=== PATIENT | female | born 1930 | race Asian ===

== ENCOUNTER 2016-10-22 11:48 | Inpatient (IN) | payer MEDICARE, MEDICAID ==
[2016-10-22] VITALS (13 sets, daily range): BP systolic 114–148; BP diastolic 54–104
[~2016-10-22] VITALS: Ht 157.5 cm; Wt 61.2 kg
[~2016-10-22 11:48] MED LIST: UNOBMED
[2016-10-22] MEDS ORDERED: Morphine Sulfate 4mg/ml Inj IVP ONE (12:30)
[2016-10-22 12:57] LABS: EOSINOPHILS % (AUTO) 0.8 % (0.0-3.0); LYMPHOCYTES % (AUTO) 23.6 % (20.0-45.0); MEAN CORPUSCULAR HEMOGLOBIN 29.9 PG (27.0-31.0); MEAN CORPUSCULAR HGB CONC 33.3 G/DL (32.0-36.0); MEAN CORPUSCULAR VOLUME 90 FL (80-99); MEAN PLATELET VOLUME 5.6 FL (6.5-10.1); MONOCYTES % (AUTO) 5.7 % (1.0-10.0); NEUTROPHILS % (AUTO) 68.9 % (45.0-75.0); PLATELET COUNT 171 K/UL (150-450); RED BLOOD COUNT 3.58 M/UL (4.20-5.40); WHITE BLOOD COUNT 7.3 K/UL (4.8-10.8)
[2016-10-22 13:09] LABS: INR 0.9 (0.9-1.1); PROTHROMBIN TIME 9.4 SEC (9.30-11.50)
[2016-10-22 13:18] LABS: ALANINE AMINOTRANSFERASE 17 U/L (3-33); ALBUMIN/GLOBULIN RATIO 1.4 (1.0-2.7); ANION GAP 17 (5-15); ASPARTATE AMINO TRANSFERASE 27 U/L (5-40); CALCIUM 8.6 mg/dL (8.6-10.2); CARBON DIOXIDE 23 mEQ/L (20-30); CHLORIDE 98 mEQ/L (98-107); HEMOLYSIS 16; POTASSIUM 3.9 mEQ/L (3.4-4.9); SODIUM 138 mEQ/L (135-145); TOTAL PROTEIN 6.6 g/dL (6.6-8.7)
--- NOTE | 2016-10-22 15:35 | History & Physical ---
History and Physical History & Physicial HPI 86 year old patient brought in by EMS. She tripped and fell over a step and has an acute fracture. patient with acute fall onto her left side. She has left hip pain and fracture. She is unable to move the hip. She denies head injury. She has no other complaints. she has no significant cardiopulmonary issues at this time. no chest pain or palpitations. Allergies: none known Past Medical History: HTN Social History: Denies: alcohol use, drug use, smoking; retired Reviewed of systems: all 10 points reviewed and are negative physical exam WDWN NAD clear breath sounds bilaterally without rhonchi or wheeze [id number] without MRG NABS nontender no HSM no CCE severe pain with ROM of left hip nonfocal Laboratory Tests Test 10/22/16 12:30 White Blood Count 7.3 K/UL (4.8-10.8) Red Blood Count 3.58 M/UL (4.20-5.40) L Hemoglobin 10.7 G/DL (12.0-16.0) L Hematocrit 32.2 % (37.0-47.0) L Mean Corpuscular Volume 90 FL (80-99) Mean Corpuscular Hemoglobin 29.9 PG (27.0-31.0) Mean Corpuscular Hemoglobin Concent 33.3 G/DL (32.0-36.0) Red Cell Distribution Width 12.0 % (11.6-14.8) Platelet Count 171 K/UL (150-450) Mean Platelet Volume 5.6 FL (6.5-10.1) L Neutrophils (%) (Auto) 68.9 % (45.0-75.0) Lymphocytes (%) (Auto) 23.6 % (20.0-45.0) Monocytes (%) (Auto) 5.7 % (1.0-10.0) Eosinophils (%) (Auto) 0.8 % (0.0-3.0) Basophils (%) (Auto) 1.0 % (0.0-2.0) Prothrombin Time 9.4 SEC (9.30-11.50) Prothromb Time International Ratio 0.9 (0.9-1.1) Activated Partial Thromboplast Time 24 SEC (23-33) Sodium Level 138 mEQ/L (135-145) Potassium Level 3.9 mEQ/L (3.4-4.9) Chloride Level 98 mEQ/L (98-107) Carbon Dioxide Level 23 mEQ/L (20-30) Anion Gap 17 (5-15) H Blood Urea Nitrogen 17 mg/dL (7-23) Creatinine 1.0 mg/dL (0.5-0.9) H Estimat Glomerular Filtration Rate mL/min (>60) Glucose Level 118 mg/dL (74-106) H Calcium Level 8.6 mg/dL (8.6-10.2) Total Bilirubin 0.3 mg/dL (0.0-1.2) Aspartate Amino Transf (AST/SGOT) 27 U/L (5-40) Alanine Aminotransferase (ALT/SGPT) 17 U/L (3-33) Alkaline Phosphatase 52 U/L (35-104) Total Protein 6.6 g/dL (6.6-8.7) Albumin 3.9 g/dL (3.5-5.2) Globulin 2.7 g/dL Albumin/Globulin Ratio 1.4 (1.0-2.7) IMPRESSION left Hip fracture advance age hypertension PLAN IV hydration stat echocardiogram labs reviewed ortho evaluation postoperative care and rehab ABDIFATAH NEWBY Oct 22, 2016 15:35
--- NOTE | 2016-10-22 16:04 | Emergency Room Report ---
History of Present Illness General Chief Complaint: Multiple Trauma/Fall Source: Patient, Family Member, EMS Present Illness HPI This patient is brought in by EMS. She tripped and fell over a step that she didn't see. This occurred 2 hours prior to arrival. She fell onto her left side. She has left hip pain. She is unable to move the hip. She did not have any other injuries. She denies head injury. She has no other complaints. Allergies: Coded Allergies: UNABLE TO ASSESS (Unverified , 10/22/16) Patient History Past Medical History: see triage record, HTN Social History: Denies: alcohol use, drug use, smoking Reviewed Nursing Documentation: PMH: Agreed, PSxH: Agreed Nursing Documentation-PMH Past Medical History: Deferred Review of Systems All Other Systems: negative except mentioned in HPI Physical Exam Vital Signs Date Time Temp Pulse Resp B/P Pulse Ox O2 Delivery O2 Flow Rate FiO2 10/22/16 11:24 97.7 76 20 181/89 98 Room Air Sp02 EP Interpretation: reviewed, normal General Appearance: no apparent distress, alert, GCS 15, non-toxic Head: normocephalic, atraumatic Eyes: bilateral eye PERRL, bilateral eye normal inspection ENT: hearing grossly normal, normal pharynx, no angioedema, normal voice Neck: full range of motion, supple/symm/no masses Respiratory: chest non-tender, lungs clear, normal breath sounds, no respiratory distress, no retraction, no accessory muscle use, speaking full sentences Cardiovascular #1: regular rate, rhythm, no edema Gastrointestinal: normal bowel sounds, non tender, soft, non-distended, no guarding, no rebound Rectal: deferred Musculoskeletal: other - Severe pain with ROM of L. hip Neurologic: alert, oriented x3, responsive, motor strength/tone normal, sensory intact, speech normal Psychiatric: judgement/insight normal, memory normal, mood/affect normal, no suicidal/homicidal ideation Skin: normal color, no rash, warm/dry, well hydrated Medical Decision Making Diagnostic Impression: Primary Impression: Hip fracture, left Additional Impressions: Fall Fracture of multiple pubic rami ER Course This patient suffered a mechanical fall and has a left hip fracture. She is admitted to the operating room for surgical repair. Labs Test 10/22/16 12:30 White Blood Count 7.3 K/UL (4.8-10.8) Red Blood Count 3.58 M/UL (4.20-5.40) Hemoglobin 10.7 G/DL (12.0-16.0) Hematocrit 32.2 % (37.0-47.0) Mean Corpuscular Volume 90 FL (80-99) Mean Corpuscular Hemoglobin 29.9 PG (27.0-31.0) Mean Corpuscular Hemoglobin Concent 33.3 G/DL (32.0-36.0) Red Cell Distribution Width 12.0 % (11.6-14.8) Platelet Count 171 K/UL (150-450) Mean Platelet Volume 5.6 FL (6.5-10.1) Neutrophils (%) (Auto) 68.9 % (45.0-75.0) Lymphocytes (%) (Auto) 23.6 % (20.0-45.0) Monocytes (%) (Auto) 5.7 % (1.0-10.0) Eosinophils (%) (Auto) 0.8 % (0.0-3.0) Basophils (%) (Auto) 1.0 % (0.0-2.0) Prothrombin Time 9.4 SEC (9.30-11.50) Prothromb Time International Ratio 0.9 (0.9-1.1) Activated Partial Thromboplast Time 24 SEC (23-33) Sodium Level 138 mEQ/L (135-145) Potassium Level 3.9 mEQ/L (3.4-4.9) Chloride Level 98 mEQ/L (98-107) Carbon Dioxide Level 23 mEQ/L (20-30) Anion Gap 17 (5-15) Blood Urea Nitrogen 17 mg/dL (7-23) Creatinine 1.0 mg/dL (0.5-0.9) Estimat Glomerular Filtration Rate mL/min (>60) Glucose Level 118 mg/dL (74-106) Calcium Level 8.6 mg/dL (8.6-10.2) Total Bilirubin 0.3 mg/dL (0.0-1.2) Aspartate Amino Transf (AST/SGOT) 27 U/L (5-40) Alanine Aminotransferase (ALT/SGPT) 17 U/L (3-33) Alkaline Phosphatase 52 U/L (35-104) Total Protein 6.6 g/dL (6.6-8.7) Albumin 3.9 g/dL (3.5-5.2) Globulin 2.7 g/dL Albumin/Globulin Ratio 1.4 (1.0-2.7) Other X-Ray Diagnostic Results X-Ray ordered: L. Hip. # of Views/Limited Vs Complete: Complete Interpretation: other Indication: Pain Impression: Other - Comminuted intertrochanteric L. hip fx. Nondisplaced superior and inferior pubic rami fracture. Date Electronically Signed: Oct 22, 2016 Time Electronically Signed: 16:28 Interpreting ER Physician: Barrie Last Vital Signs Date Time Temp Pulse Resp B/P Pulse Ox O2 Delivery O2 Flow Rate FiO2 10/22/16 15:48 76 17 132/60 98 Room Air 10/22/16 15:28 97.1 Disposition: ADMITTED INPATIENT Condition: Serious Referrals: NOT CHOSEN JOSEFA/,REFERRING (PCP) BLADE RECINOS D.O. Oct 22, 2016 16:04
[2016-10-22] MEDS ORDERED: Bupivacaine w/Epi 0.25% 30ml Vial INJ ONE (16:36)
--- NOTE | 2016-10-22 16:44 | Anethesia Preoperative Eval ---
Anesthesia Pre-op PMH/ROS General Date of Evaluation: Oct 22, 2016 Anesthesiologist: Simeon ASA Score: ASA 2 Mallampati Score Class I : Soft palate, uvula, fauces, pillars visible Class II: Soft palate, uvula, fauces visible Class III: Soft palate, base of uvula visible Class IV: Only hard plate visible Mallampati Classification: Class II Surgeon: Timoteo Diagnosis: Left hip fracture Surgical Procedure: Left hip ORIF Anesthesia History: none Family History: no anesthesia problems Allergies: Coded Allergies: UNABLE TO ASSESS (Unverified , 10/22/16) Medications: see eMAR Past Medical History Cardiovascular: Reports: HTN, Denies: CAD, AR, arrhythmia, other, valve dz Pulmonary: Denies: COPD, BERNARDO, asthma, other Gastrointestinal/Genitourinary: Denies: CRI, ESRD, GERD, other Neurologic/Psychiatric: Denies: CVA, TIA, dementia, depression/anxiety, other Endocrine: Denies: DM, hypothyroidism, other, steroids HEENT: Denies: [place] (L), [place] (R), cataract (L), cataract (R), glaucoma, other Hematology/Immune: Denies: DVT, anemia, bleeding disorder, other Musculoskeletal/Integumentary: Denies: DDD, DJD, OA, RA, edema, other PSxH Narrative: C/s Anesthesia Pre-op Phys. Exam Physician Exam Last Vital Signs Date Time Temp Pulse Resp B/P Pulse Ox O2 Delivery O2 Flow Rate FiO2 10/22/16 15:48 76 17 132/60 98 Room Air 10/22/16 15:28 97.1 Constitutional: NAD Cardiovascular: RRR Airway Exam Mallampati Score: Class II MO: full ROM: full Teeth: missing Anesthesia Pre-op A/P Labs Hematology Test 10/22/16 12:30 White Blood Count 7.3 K/UL (4.8-10.8) Red Blood Count 3.58 M/UL (4.20-5.40) L Hemoglobin 10.7 G/DL (12.0-16.0) L Hematocrit 32.2 % (37.0-47.0) L Mean Corpuscular Volume 90 FL (80-99) Mean Corpuscular Hemoglobin 29.9 PG (27.0-31.0) Mean Corpuscular Hemoglobin Concent 33.3 G/DL (32.0-36.0) Red Cell Distribution Width 12.0 % (11.6-14.8) Platelet Count 171 K/UL (150-450) Mean Platelet Volume 5.6 FL (6.5-10.1) L Neutrophils (%) (Auto) 68.9 % (45.0-75.0) Lymphocytes (%) (Auto) 23.6 % (20.0-45.0) Monocytes (%) (Auto) 5.7 % (1.0-10.0) Eosinophils (%) (Auto) 0.8 % (0.0-3.0) Basophils (%) (Auto) 1.0 % (0.0-2.0) Coagulation Test 10/22/16 12:30 Prothrombin Time 9.4 SEC (9.30-11.50) Prothromb Time International Ratio 0.9 (0.9-1.1) Activated Partial Thromboplast Time 24 SEC (23-33) Chemistry Test 10/22/16 12:30 Sodium Level 138 mEQ/L (135-145) Potassium Level 3.9 mEQ/L (3.4-4.9) Chloride Level 98 mEQ/L (98-107) Carbon Dioxide Level 23 mEQ/L (20-30) Anion Gap 17 (5-15) H Blood Urea Nitrogen 17 mg/dL (7-23) Creatinine 1.0 mg/dL (0.5-0.9) H Estimat Glomerular Filtration Rate mL/min (>60) Glucose Level 118 mg/dL (74-106) H Calcium Level 8.6 mg/dL (8.6-10.2) Total Bilirubin 0.3 mg/dL (0.0-1.2) Aspartate Amino Transf (AST/SGOT) 27 U/L (5-40) Alanine Aminotransferase (ALT/SGPT) 17 U/L (3-33) Alkaline Phosphatase 52 U/L (35-104) Total Protein 6.6 g/dL (6.6-8.7) Albumin 3.9 g/dL (3.5-5.2) Globulin 2.7 g/dL Albumin/Globulin Ratio 1.4 (1.0-2.7) Risk Assessment & Plan Assessment: ASA II Plan: GA Status Change Before Surgery: No Pre-Antibiotics Drug: Ancef 2g Given Within 1 Hr of Incision: Yes Time Given: 17:10 ANALI MARTINI M.D. Oct 22, 2016 16:44
[2016-10-22] MEDS ORDERED: fentaNYL 250mcg/5ml ONE (17:00)
[2016-10-22] MEDS ORDERED: Ketamine 500mg Inj ONE (17:00)
[2016-10-22] MEDS ORDERED: Propofol 10mg/ml 20ml IV ONE (17:00)
[2016-10-22] MEDS ORDERED: Lidocaine 1% MPF 10mg/ml 5ml ONE (17:00)
--- NOTE | 2016-10-22 17:02 | Pre-Procedure Note/Attestation ---
Pre-Procedure Note/Attestation Complete Prior to Procedure Planned Procedure: left Procedure Narrative: hip orif Indications for Procedure Pre-Operative Diagnosis: left hip fracture Attestation I attest that I discussed the nature of the procedure; its benefits; risks and complications; and alternatives (and the risks and benefits of such alternatives ), prior to the procedure, with the patient (or the patient's legal inside sales representative). I attest that, if there was a reasonable possibility of needing a blood transfusion, the patient (or the patient's legal inside sales representative) was given the [facility] standardized written summary, pursuant to the [place] Blood Safety Act ([place] Health and Safety Code # 1645, as amended). I attest that I re-evaluated the patient just prior to the surgery and that there has been no change in the patient's H&P, except as documented below: BHAVNA HERRERA Oct 22, 2016 17:02
--- NOTE | 2016-10-22 17:02 | Operative Note - PDOC ---
Operative Note Operative Note Pre-op Diagnosis: left hip fracture Procedure: left hip orif Post-op Diagnosis: same as pre-op Operative Findings: consistent w/pre-op dx studies Specimen: none Complications: none Condition: stable Estimated Blood Loss: none Drains: none Implant(s) used?: Yes BHAVNA HERRERA Oct 22, 2016 17:02
[2016-10-22] MEDS ORDERED: Morphine Sulfate 2mg/ml Inj IVP PRN (17:15)
[2016-10-22] MEDS ORDERED: Milk of Magnesia 30ml Ud ORAL PRN (17:15)
[2016-10-22] MEDS ORDERED: Norco 5mg/325mg tab ORAL PRN (17:15)
--- NOTE | 2016-10-22 17:46 | 48 Hour Post Anesthesia Eval ---
Post Anesthesia Evaluation Procedure: ORIF L Hip Date of Evaluation: Oct 22, 2016 Time of Evaluation: 20:11 Blood Pressure Systolic: 146 0: 73 Pulse Rate: 79 Respiratory Rate: 17 Temperature (Fahrenheit): 97.3 O2 Sat by Pulse Oximetry: 98 Airway: patent Nausea: No Vomiting: No Pain Intensity: 2 Hydration Status: adequate Cardiopulmonary Status: Stable Mental Status/LOC: patient returned to baseline Follow-up Care/Observations: 0 Post-Anesthesia Complications: 0 Follow-up care needed: N/A Jacques Gill MD Oct 22, 2016 17:46
--- NOTE | 2016-10-22 18:12 | Immediate Post-Op Evaluation ---
Immediate Post-Op Evalulation Immediate Post-Op Evalulation Procedure: ORIF L Hip Date of Evaluation: Oct 22, 2016 Time of Evaluation: 18:12 IV Fluids: 500 Blood Products: 0 Estimated Blood Loss: 150 Urinary Output: 100 Blood Pressure Systolic: 123 Blood Pressure Diastolic: 63 Pulse Rate: 84 Respiratory Rate: 16 O2 Sat by Pulse Oximetry: 97 Temperature (Fahrenheit): 97.1 Pain Score (1-10): 0 Nausea: No Vomiting: No Complications 0 Patient Status: awake, reacts, patent, none Hydration Status: adequate Drug: Ancef 2g Given Within 1 Hr of Incision: Yes Time Given: 17:10 ANALI MARTINI M.D. Oct 22, 2016 18:12
[2016-10-22] MEDS ORDERED: Bacitracin 50000 Units Vial ONE (18:41)
[2016-10-22] MEDS: Docusate 100mg cap ORAL SCH (21:00)
[2016-10-22] MEDS: Metamucil Pkt ORAL SCH (21:00)
--- NOTE | 2016-10-22 21:30 | Operative Note - Dictated ---
DATE OF OPERATION: 10/22/2016 PREOPERATIVE DIAGNOSIS: Left intertrochanteric subtrochanteric hip fracture. POSTOPERATIVE DIAGNOSIS: Left intertrochanteric subtrochanteric hip fracture. PROCEDURE PERFORMED: Open reduction and internal fixation left intertrochanteric subtrochanteric fracture with intramedullary device. SURGEON: Ivan Mahmood M.D. ANESTHESIA: General. INDICATION FOR PROCEDURE: The patient is a pleasant 86-year-old female who sustained a mechanical fall. She was diagnosed with a displaced intertrochanteric/subtrochanteric fracture. She was indicated operative fixation. Risks, limitations, expectations, and complications of the procedure were discussed in detail including continued pain, need for future surgery, risk of anesthesia, medical complications, DVT, PE, and mortality risks. All questions addressed. Prior to surgery, I attempted calling Jesus Moeller, who is listed as emergency contact, who is her daughter. Unfortunately, her number was not accurate. DESCRIPTION OF PROCEDURE: An informed consent was obtained. The patient was taken to the operative room and placed under general anesthesia. The patient was carefully placed in the beach-chair position. Left hip was prepped and draped in a sterile manner. Time-out was performed. A 2 g of Ancef was administered. The lateral skin incision was then made. Guidewire was put in the proximal aspect of the femur and proximal aspect of the femur was opened up with opening reamer. A long beaded tip guidewire was then placed in the shaft and 12 mm reamer was then sent along with the 15.5 for the proximal aspect, a 380 x 11 mm gamma nail was selected and placed through the second stab incision. A guidewire placed in the neck and head junction. A 95 mm screw was selected and placed. Once that was done, targeting device for the distal screws were then placed and two distal screws were then placed. Once that was done, the targeting device was removed. Portal sites were closed using #1 Vicryl suture, 2-0 Vicryl suture, and 3-0 Monocryl suture. Steri-Strips and a sterile dressing were applied. The patient was awoken and taken to the recovery room with stable vital signs. ESTIMATED BLOOD LOSS: 50 mL. COMPLICATIONS: None. SPECIMENS: None. IMPLANT: [place] long gamma nail, primary cannulated screw, and two distal locking screws. Ivan Mahmood M.D. DR: Susy JOB#: [id number] CC:
[2016-10-22] MEDS: D5 1/2NS w/KCl 20mEq 1,000 ML IV SCH (21:53)
[2016-10-22] MEDS: Morphine Sulfate 2mg/ml Inj IVP PRN (22:07)
[2016-10-23 00:47] VITALS: BP 108/54
--- NOTE | 2016-10-23 02:15 | Consultation ---
DATE OF CONSULTATION: 10/22/2016 CONSULTING PHYSICIAN: Ivan Mahmood M.D. HISTORY OF PRESENT ILLNESS: The patient is a pleasant 86-year-old female, who sustained a mechanical fall. She was brought to the emergency room where she had imaging studies, which showed a trochanteric fracture. Orthopedic consultation was obtained for further care and recommendation. PAST MEDICAL HISTORY: Hypertension. PAST SURGICAL HISTORY: None noted. MEDICATIONS: Reviewed from the intake chart. ALLERGIES: None. SOCIAL HISTORY: The patient lives at home. She does not smoke or drink. FAMILY HISTORY: Noncontributory. PHYSICAL EXAMINATION: The patient has significant pain with internal and external rotation of the left hip. Posterior calf is soft. Neurovascular is normal. LABORATORY AND DIAGNOSTIC DATA: Imaging studies show a three-part intertrochanteric hip fracture. Hemoglobin is 10.7 and platelets 171,000. INR is 0.4. Creatinine is 1.0. ASSESSMENT: Left intertrochanteric hip fracture. PLAN: I discussed to proceed with open reduction and internal fixation. Risks, limitations, expectations, and complications of the procedure were discussed in detail. All questions were addressed. Her labs are actually within normal and she has not eaten since 7 a.m. Therefore, we will go ahead and proceed with the surgery as intended to prevent any delayed care, and this way, we can get her up and around moving as quickly as possible. Ivan Mahmood M.D. DR: PATTI JOB#: [id number] CC: RANGEL
[2016-10-23] MEDS: ceFAZolin sod 2 GM in D5W 110 ML IV SCH ×3 (02:26→11:20)
[2016-10-23 04:00] VITALS: BP 129/60
[2016-10-23] MEDS: Morphine Sulfate 2mg/ml Inj IVP PRN (05:44)
[2016-10-23 07:47] VITALS: BP 132/56
--- NOTE | 2016-10-23 08:33 | General Progress Note ---
Assessment/Plan Assessment/Plan Left intertrochanteric subtrochanteric hip fracture. Open reduction and internal fixation left intertrochanteric subtrochanteric fracture with intramedullary device. hypertension post op pain PLAN 1. incentive spirometry 2. Lovenox 3. PT evaluation and therapy 4. Hydration 5. Pain management 6. discharge once stable with outpatient follow up Subjective Allergies: Coded Allergies: No Known Allergies (Unverified , 10/23/16) Subjective post op care noted d/w ortho and RN Objective Last 24 Hour Vital Signs Date Time Temp Pulse Resp B/P Pulse Ox O2 Delivery O2 Flow Rate FiO2 10/23/16 07:47 97.1 96 19 132/56 98 Room Air 10/23/16 06:14 99.1 10/23/16 04:00 99.1 95 19 129/60 92 Room Air 10/23/16 00:47 97.9 94 18 108/54 98 Room Air 10/22/16 20:31 97.3 76 18 128/75 99 Nasal Cannula 2.0 10/22/16 20:00 97.5 78 19 131/67 98 Nasal Cannula 2.0 10/22/16 19:30 98.0 78 18 132/68 98 Nasal Cannula 2.0 10/22/16 19:10 97.8 75 15 135/63 96 Nasal Cannula 3.0 10/22/16 18:55 76 15 131/60 96 Nasal Cannula 3.0 10/22/16 18:40 75 14 124/58 96 Nasal Cannula 3.0 10/22/16 18:25 75 14 122/59 96 Simple Mask 6.0 10/22/16 18:17 77 15 114/54 96 Simple Mask 6.0 10/22/16 18:12 83 15 125/58 95 Simple Mask 6.0 10/22/16 18:12 84 16 97 10/22/16 18:07 97.1 83 14 128/59 95 Simple Mask 6.0 10/22/16 17:46 79 17 98 10/22/16 15:48 76 17 132/60 98 Room Air 10/22/16 15:28 97.1 76 17 132/60 Room Air 10/22/16 14:00 98.6 73 18 148/75 97 Room Air 10/22/16 12:15 97.7 78 14 133/104 96 Room Air 10/22/16 11:24 97.7 76 20 181/89 98 Room Air Intake and Output 10/22/16 10/23/16 19:00 07:00 Intake Total 500 ml 1213 ml Output Total 600 ml 450 ml Balance -100 ml 763 ml Intake Oral 240 ml IV Total 500 ml 973 ml Output Urine Total 450 ml 450 ml Estimated Blood Loss 150 ml Laboratory Tests 10/22/16 12:30: White Blood Count 7.3, Red Blood Count 3.58L, Hemoglobin 10.7L, Hematocrit 32.2L , Mean Corpuscular Volume 90, Mean Corpuscular Hemoglobin 29.9, Mean Corpuscular Hemoglobin Concent 33.3, Red Cell Distribution Width 12.0, Platelet Count 171, Mean Platelet Volume 5.6L, Neutrophils (%) (Auto) 68.9, Lymphocytes ( %) (Auto) 23.6, Monocytes (%) (Auto) 5.7, Eosinophils (%) (Auto) 0.8, Basophils (%) (Auto) 1.0, Prothrombin Time 9.4, Prothromb Time International Ratio 0.9, Activated Partial Thromboplast Time 24, Sodium Level 138, Potassium Level 3.9, Chloride Level 98, Carbon Dioxide Level 23, Anion Gap 17H, Blood Urea Nitrogen 17, Creatinine 1.0H, Estimat Glomerular Filtration Rate , Glucose Level 118H, Calcium Level 8.6, Total Bilirubin 0.3, Aspartate Amino Transf (AST/SGOT) 27, Alanine Aminotransferase (ALT/SGPT) 17, Alkaline Phosphatase 52, Total Protein 6.6, Albumin 3.9, Globulin 2.7, Albumin/Globulin Ratio 1.4 Height (Feet): 5 Height (Inches): 2.00 Weight (Pounds): 135 Objective WDWN NAD clear breath sounds bilaterally without rhonchi or wheeze [id number] without MRG NABS nontender no HSM no CCE pain with ROM of the hip nonfocal ABDIFATAH NEWBY Oct 23, 2016 08:33
[2016-10-23] MEDS: Metamucil Pkt ORAL SCH ×3 (09:42→18:20)
[2016-10-23] MEDS: Docusate 100mg cap ORAL SCH ×3 (09:42→18:20)
[2016-10-23] MEDS: Norco 7.5mg/325mg tab ORAL PRN (09:42)
[2016-10-23] MEDS: Enoxaparin 30mg Inj SUBQ SCH (09:43)
--- NOTE | 2016-10-23 09:55 | Diagnostic Imaging Report ---
Indication: Left hip pain Technique: XRAY PELVIS 1 VIEW Comparison: 10/22/16 Findings: A left proximal femoral intratrochanteric fracture is again noted with internal fixation by an intramedullary nail, femoral neck compression and 2 distal cortical locking screws which appear stable. Operative soft tissue changes are present. There is osteopenia. Impression: Stable internal fixation of the left femur.
[2016-10-23] MEDS: D5 1/2NS w/KCl 20mEq 1,000 ML IV SCH ×2 (11:20→20:40)
[2016-10-23 11:51] VITALS: BP 120/57
[2016-10-23 16:08] VITALS: BP 136/63
[2016-10-23] MEDS: Morphine Sulfate 4mg/ml Inj IVP PRN (18:20)
[2016-10-23 20:00] VITALS: BP 145/68
[2016-10-24] VITALS: BP 133/65
[2016-10-24] MEDS: Morphine Sulfate 2mg/ml Inj IVP PRN ×2 (03:33→12:52)
[2016-10-24 04:00] VITALS: BP 132/67
--- NOTE | 2016-10-24 07:21 | General Progress Note ---
Assessment/Plan Assessment/Plan Left intertrochanteric subtrochanteric hip fracture. Open reduction and internal fixation left intertrochanteric subtrochanteric fracture with intramedullary device. hypertension post op pain post op fevers PLAN 1. incentive spirometry 2. Lovenox 3. PT evaluation and therapy 4. Hydration 5. Pain management 6. discharge planning 7. follow up cbc impression, plan, and exam edited and reviewed in detail care discussed with RN Subjective Allergies: Coded Allergies: No Known Allergies (Unverified , 10/23/16) Subjective post op care noted d/w RN had low grade fever Objective Last 24 Hour Vital Signs Date Time Temp Pulse Resp B/P Pulse Ox O2 Delivery O2 Flow Rate FiO2 10/24/16 04:03 98.6 10/24/16 04:00 99.3 96 23 132/67 95 10/24/16 00:00 98.6 99 21 133/65 98 Nasal Cannula 2.0 10/23/16 20:00 100.6 101 22 145/68 95 Nasal Cannula 2.0 10/23/16 18:50 97.8 10/23/16 16:08 97.8 100 20 136/63 100 Nasal Cannula 2.0 10/23/16 11:51 97.5 100 20 120/57 97 Nasal Cannula 2.0 10/23/16 10:59 97.1 10/23/16 07:47 97.1 96 19 132/56 98 Room Air Intake and Output 10/23/16 10/24/16 19:00 07:00 Intake Total 1105 ml 750 ml Output Total 550 ml 400 ml Balance 555 ml 350 ml Intake Oral 1030 ml IV Total 75 ml 750 ml Output Urine Total 550 ml 400 ml # Voids 2 Labs Test 10/22/16 12:30 White Blood Count 7.3 K/UL (4.8-10.8) Red Blood Count 3.58 M/UL (4.20-5.40) Hemoglobin 10.7 G/DL (12.0-16.0) Hematocrit 32.2 % (37.0-47.0) Mean Corpuscular Volume 90 FL (80-99) Mean Corpuscular Hemoglobin 29.9 PG (27.0-31.0) Mean Corpuscular Hemoglobin Concent 33.3 G/DL (32.0-36.0) Red Cell Distribution Width 12.0 % (11.6-14.8) Platelet Count 171 K/UL (150-450) Mean Platelet Volume 5.6 FL (6.5-10.1) Neutrophils (%) (Auto) 68.9 % (45.0-75.0) Lymphocytes (%) (Auto) 23.6 % (20.0-45.0) Monocytes (%) (Auto) 5.7 % (1.0-10.0) Eosinophils (%) (Auto) 0.8 % (0.0-3.0) Basophils (%) (Auto) 1.0 % (0.0-2.0) Prothrombin Time 9.4 SEC (9.30-11.50) Prothromb Time International Ratio 0.9 (0.9-1.1) Activated Partial Thromboplast Time 24 SEC (23-33) Sodium Level 138 mEQ/L (135-145) Potassium Level 3.9 mEQ/L (3.4-4.9) Chloride Level 98 mEQ/L (98-107) Carbon Dioxide Level 23 mEQ/L (20-30) Anion Gap 17 (5-15) Blood Urea Nitrogen 17 mg/dL (7-23) Creatinine 1.0 mg/dL (0.5-0.9) Estimat Glomerular Filtration Rate mL/min (>60) Glucose Level 118 mg/dL (74-106) Calcium Level 8.6 mg/dL (8.6-10.2) Total Bilirubin 0.3 mg/dL (0.0-1.2) Aspartate Amino Transf (AST/SGOT) 27 U/L (5-40) Alanine Aminotransferase (ALT/SGPT) 17 U/L (3-33) Alkaline Phosphatase 52 U/L (35-104) Total Protein 6.6 g/dL (6.6-8.7) Albumin 3.9 g/dL (3.5-5.2) Globulin 2.7 g/dL Albumin/Globulin Ratio 1.4 (1.0-2.7) Height (Feet): 5 Height (Inches): 2.00 Weight (Pounds): 135 Objective WDWN NAD clear breath sounds bilaterally without rhonchi or wheeze [id number] without MRG NABS nontender no HSM no CCE pain with ROM of the hip nonfocal awake ABDIFATAH NEWBY Oct 24, 2016 07:21
[2016-10-24 08:00] VITALS: BP 139/57
[2016-10-24] MEDS: Docusate 100mg cap ORAL SCH ×3 (08:39→17:37)
[2016-10-24] MEDS: Metamucil Pkt ORAL SCH ×3 (08:39→17:37)
[2016-10-24] MEDS: Enoxaparin 30mg Inj SUBQ SCH (08:40)
[2016-10-24 09:33] LABS: MEAN CORPUSCULAR HEMOGLOBIN 30.1 PG (27.0-31.0); MEAN CORPUSCULAR HGB CONC 33.3 G/DL (32.0-36.0); MEAN CORPUSCULAR VOLUME 90 FL (80-99); MEAN PLATELET VOLUME 6.3 FL (6.5-10.1); PLATELET COUNT 148 K/UL (150-450); RED BLOOD COUNT 2.39 M/UL (4.20-5.40); RED CELL DISTRIBUTION WIDTH 12.3 % (11.6-14.8); WHITE BLOOD COUNT 10.2 K/UL (4.8-10.8)
[2016-10-24] MEDS ORDERED: LOSARTAN-HCTZ1 EACH ORAL (09:47)
[2016-10-24] MEDS ORDERED: BACLOFEN5 GM MC (09:47)
[2016-10-24] MEDS ORDERED: CREON DR 12,001 EACH PO (09:47)
[2016-10-24] MEDS ORDERED: METOCLOPRAMIDE H5 M1 ORAL (09:47)
[2016-10-24] MEDS: D5 1/2NS w/KCl 20mEq 1,000 ML IV SCH (10:00)
[2016-10-24 10:34] LABS: BAND NEUTROPHILS % (MANUAL) 0 % (0-8); BASOPHILS % (MANUAL) 0 % (0-2); EOSINOPHILS % (MANUAL) 0 % (0-3); HYPOCHROMASIA 1+; LYMPHOCYTES % (MANUAL) 7 % (20-45); NEUTROPHILS % (MANUAL) 87 % (45-75); PLATELET ESTIMATE ADEQUATE; PLATELET MORPHOLOGY NORMAL; PROMYELOCYTES % 1 % (0-0); TOTAL CELLS COUNTED 100
[2016-10-24] MEDS ORDERED: Lactulose 20gm/30ml UDC ORAL PRN (11:45)
[2016-10-24 12:00] VITALS: BP 134/49
[2016-10-24 16:00] VITALS: BP 146/62
[2016-10-24] MEDS: Norco 7.5mg/325mg tab ORAL PRN (17:37)
[2016-10-24 20:00] VITALS: BP 111/47
[2016-10-25 00:14] VITALS: BP 121/61
[2016-10-25 04:17] VITALS: BP 120/58
[2016-10-25 07:59] LABS: MEAN CORPUSCULAR HEMOGLOBIN 30.5 PG (27.0-31.0); MEAN CORPUSCULAR HGB CONC 33.9 G/DL (32.0-36.0); MEAN CORPUSCULAR VOLUME 90 FL (80-99); MEAN PLATELET VOLUME 6.3 FL (6.5-10.1); PLATELET COUNT 145 K/UL (150-450); RED BLOOD COUNT 2.04 M/UL (4.20-5.40); RED CELL DISTRIBUTION WIDTH 12.1 % (11.6-14.8); WHITE BLOOD COUNT 8.8 K/UL (4.8-10.8)
[2016-10-25] MEDS: Enoxaparin 30mg Inj SUBQ SCH (08:28)
[2016-10-25] MEDS: Docusate 100mg cap ORAL SCH ×3 (08:28→17:01)
[2016-10-25] MEDS: Metamucil Pkt ORAL SCH ×3 (08:28→17:01)
[2016-10-25 08:30] VITALS: BP 131/61
--- NOTE | 2016-10-25 08:38 | Diagnostic Imaging Report ---
Indications: Left hip trauma, pain Technique: 2 views left hip Findings: Comparison: None There is a comminuted fracture through the intertrochanteric region of the left femur, mildly displaced and angulated. No underlying lytic destructive process. There are nondisplaced fractures through the left superior and inferior ischiopubic rami. No additional fracture, dislocation, joint space widening, or other acute change identified. IMPRESSION: Left femoral intertrochanteric fracture Left superior and inferior ischiopubic ramus fractures
--- NOTE | 2016-10-25 08:39 | Diagnostic Imaging Report ---
Indication: Left hip pain Technique: Intraoperative imaging of the left hip with 4 fluoroscopically captured images. Comparison: Examination from 1303 hrs. Findings: A left proximal femoral intratrochanteric fracture is again noted with internal fixation by an intramedullary nail, femoral neck compression and 2 distal cortical locking screws. Operative soft tissue changes are present. There is osteopenia. Impression: Intraoperative imaging of the left femur.
[2016-10-25 08:41] LABS: BAND NEUTROPHILS % (MANUAL) 0 % (0-8); BASOPHILS % (MANUAL) 0 % (0-2); EOSINOPHILS % (MANUAL) 0 % (0-3); HYPOCHROMASIA 1+; LYMPHOCYTES % (MANUAL) 17 % (20-45); NEUTROPHILS % (MANUAL) 75 % (45-75); PLATELET ESTIMATE DECREASED; PLATELET MORPHOLOGY NORMAL; TOTAL CELLS COUNTED 100
--- NOTE | 2016-10-25 08:41 | Cardiology Report ---
APPROVED REPORT EXAM: Two-dimensional and M-mode echocardiogram with Doppler and color Doppler. INDICATION OTHER M-Mode DIMENSIONS IVSd0.9 (0.7-1.1cm)Left Atrium (MM)2.8 (1.6-4.0cm) LVDd4.0 (3.5-5.6cm)Aortic Root2.8 (2.0-3.7cm) PWd0.8 (0.7-1.1cm)Aortic Cusp Exc.1.9 (1.5-2.0cm) IVSs0.9 cm LVDs2.3 (2.5-4.0cm) PWs1.1 cm Technically difficult study due to poor acoustic windows. Normal left ventricular chamber size, systolic function and wall motion. Left ventricular ejection fraction estimated to be 60-65%. Mild left ventricular hypertrophy. Small posterior pericardial effusion. All other cardiac chamber sizes are within normal limits. Focal aortic valve sclerosis with adequate cusp excursion Thickened mitral valve leaflets with normal excursion. Mitral annulus and aortic root calcification. Pulmonic valve not well visualized. Normal tricuspid valve structure. IVC not obtainable. A color flow and spectral Doppler study was performed and revealed: No aortic regurgitation. Trace mitral regurgitation. Left ventricular diastolic dysfunction grade 1. No tricuspid regurgitation. Tricuspid systolic velocities suggests peak right ventricular systolic pressure of 19 mmHg
--- NOTE | 2016-10-25 10:28 | General Progress Note ---
Assessment/Plan Assessment/Plan Left intertrochanteric subtrochanteric hip fracture. Open reduction and internal fixation left intertrochanteric subtrochanteric fracture with intramedullary device. hypertension post op pain post op fevers anemia urinary retention PLAN 1. incentive spirometry 2. Lovenox 3. PT evaluation and therapy 4. Hydration 5. Pain management 6. discharge planning 7. follow up cbc and transfuse now; family refused yesterday 8. terrell for now with urinary retentions cannot get a hold of the family; numbers are wrong on facesheet impression, plan, and exam edited and reviewed in detail care discussed with RN Subjective Allergies: Coded Allergies: No Known Allergies (Unverified , 10/23/16) Subjective post op care noted d/w RN noted fevers and anemia Objective Last 24 Hour Vital Signs Date Time Temp Pulse Resp B/P Pulse Ox O2 Delivery O2 Flow Rate FiO2 10/25/16 08:30 98.4 86 20 131/61 98 Room Air 10/25/16 04:17 98.8 88 17 120/58 98 Nasal Cannula 2.0 10/25/16 00:14 98.2 94 18 121/61 98 Nasal Cannula 2.0 10/24/16 20:00 98.2 96 18 111/47 97 Nasal Cannula 2.0 10/24/16 18:36 98.6 10/24/16 16:00 98.6 100 20 146/62 96 Nasal Cannula 2.0 10/24/16 13:22 97.7 10/24/16 12:00 98.1 104 20 134/49 95 Nasal Cannula 2.0 Intake and Output 10/24/16 10/25/16 19:00 07:00 Intake Total 500 ml 240 ml Output Total 1200 ml 450 ml Balance -700 ml -210 ml Intake Oral 500 ml 240 ml Output Urine Total 1200 ml 450 ml Laboratory Tests 10/25/16 07:15: White Blood Count 8.8, Red Blood Count 2.04L, Hemoglobin 6.2*L, Hematocrit 18.4L , Mean Corpuscular Volume 90, Mean Corpuscular Hemoglobin 30.5, Mean Corpuscular Hemoglobin Concent 33.9, Red Cell Distribution Width 12.1, Platelet Count 145L, Mean Platelet Volume 6.3L, Neutrophils (%) (Auto) , Lymphocytes (%) (Auto) , Monocytes (%) (Auto) , Eosinophils (%) (Auto) , Basophils (%) (Auto) , Differential Total Cells Counted 100, Neutrophils % (Manual) 75, Lymphocytes % ( Manual) 17L, Monocytes % (Manual) 8, Eosinophils % (Manual) 0, Basophils % ( Manual) 0, Band Neutrophils 0, Platelet Estimate DecreasedL, Platelet Morphology Normal, Hypochromasia 1+ Height (Feet): 5 Height (Inches): 2.00 Weight (Pounds): 135 Objective WDWN NAD clear breath sounds bilaterally without rhonchi or wheeze [id number] without MRG NABS nontender no HSM no CCE pain with ROM of the hip nonfocal awake ABDIFATAH NEWBY Oct 25, 2016 10:28
--- NOTE | 2016-10-25 12:08 | Diagnostic Imaging Report ---
Indications: Abdominal distention. Technique: AP view of the abdomen Findings: Comparison: None. Bowel gas pattern is unremarkable. No abnormal calcific or soft tissue densities are demonstrated. Small disc marginal osteophytes in lumbar spine. Fixation hardware proximal left femur.. IMPRESSION: No evidence of acute abdominopelvic disease Chronic changes as described.
[2016-10-25 12:20] VITALS: BP 129/62
[2016-10-25 15:55] VITALS: BP 134/81
[2016-10-25] MEDS ORDERED: NS 550ML IV ONE (15:57)
[2016-10-25] MEDS ORDERED: Tubing IV Secondary IV ONE (15:57)
[2016-10-25] MEDS ORDERED: Tubing Blood Filter IV ONE (15:57)
[2016-10-25] MEDS: Norco 7.5mg/325mg tab ORAL PRN (20:13)
[2016-10-25 20:30] VITALS: BP 129/63
[2016-10-26 00:25] VITALS: BP 113/52
[2016-10-26 04:38] VITALS: BP 138/65
[2016-10-26 07:08] LABS: BASOPHILS % (AUTO) 1.1 % (0.0-2.0); EOSINOPHILS % (AUTO) 2.3 % (0.0-3.0); LYMPHOCYTES % (AUTO) 15.6 % (20.0-45.0); MEAN CORPUSCULAR HEMOGLOBIN 29.6 PG (27.0-31.0); MEAN CORPUSCULAR HGB CONC 33.6 G/DL (32.0-36.0); MEAN CORPUSCULAR VOLUME 88 FL (80-99); MEAN PLATELET VOLUME 6.3 FL (6.5-10.1); MONOCYTES % (AUTO) 8.1 % (1.0-10.0); NEUTROPHILS % (AUTO) 72.9 % (45.0-75.0); PLATELET COUNT 159 K/UL (150-450); RED BLOOD COUNT 3.06 M/UL (4.20-5.40); RED CELL DISTRIBUTION WIDTH 12.7 % (11.6-14.8); WHITE BLOOD COUNT 6.3 K/UL (4.8-10.8)
[2016-10-26 08:00] VITALS: BP 119/57
[2016-10-26] MEDS: Metamucil Pkt ORAL SCH ×2 (08:54→13:15)
[2016-10-26] MEDS: Docusate 100mg cap ORAL SCH ×2 (08:54→13:15)
[2016-10-26] MEDS: Enoxaparin 30mg Inj SUBQ SCH (08:54)
[2016-10-26] MEDS: Morphine Sulfate 4mg/ml Inj IVP PRN (08:55)
[2016-10-26] MEDS: Morphine Sulfate 2mg/ml Inj IVP PRN (09:06)
--- NOTE | 2016-10-26 09:33 | General Progress Note ---
Assessment/Plan Assessment/Plan Left intertrochanteric subtrochanteric hip fracture. Open reduction and internal fixation left intertrochanteric subtrochanteric fracture with intramedullary device. hypertension post op pain post op fevers anemia urinary retention PLAN 1. incentive spirometry 2. Lovenox as is; Xarelto on dc 3. PT evaluation and therapy 4. Hydration encourage 5. Pain management 6. discharge planning to SNF 7. follow up cbc noted 8. monitor for urinary retention cannot get a hold of the family; numbers are wrong on facesheet impression, plan, and exam edited and reviewed in detail care discussed with RN Subjective Allergies: Coded Allergies: No Known Allergies (Unverified , 10/23/16) Subjective post op care noted d/w RN noted fevers and anemia improved difficult to reach family but they were present today Objective Last 24 Hour Vital Signs Date Time Temp Pulse Resp B/P Pulse Ox O2 Delivery O2 Flow Rate FiO2 10/26/16 08:00 95.0 91 16 119/57 98 Nasal Cannula 2.0 10/26/16 04:38 97.9 74 17 138/65 98 Room Air 10/26/16 00:25 97.7 73 16 113/52 97 Nasal Cannula 2.0 10/25/16 20:30 98.2 73 18 129/63 99 Nasal Cannula 2.0 10/25/16 18:01 98.5 10/25/16 15:55 98.5 79 19 134/81 99 Nasal Cannula 2.0 10/25/16 12:20 97.1 87 20 129/62 100 Room Air Intake and Output 10/25/16 10/26/16 19:00 07:00 Intake Total 1500 ml 240 ml Output Total 750 ml 700 ml Balance 750 ml -460 ml Intake Oral 1250 ml 240 ml Blood Product 250 ml Output Urine Total 750 ml 700 ml # Voids 1 Laboratory Tests 10/26/16 06:15: White Blood Count 6.3, Red Blood Count 3.06L, Hemoglobin 9.1#L, Hematocrit 27.0# L, Mean Corpuscular Volume 88, Mean Corpuscular Hemoglobin 29.6, Mean Corpuscular Hemoglobin Concent 33.6, Red Cell Distribution Width 12.7, Platelet Count 159, Mean Platelet Volume 6.3L, Neutrophils (%) (Auto) 72.9, Lymphocytes ( %) (Auto) 15.6L, Monocytes (%) (Auto) 8.1, Eosinophils (%) (Auto) 2.3, Basophils (%) (Auto) 1.1 Height (Feet): 5 Height (Inches): 2.00 Weight (Pounds): 135 Objective WDWN NAD clear breath sounds bilaterally without rhonchi or wheeze [id number] without MRG NABS nontender no HSM no CCE pain with ROM of the hip nonfocal awake ABDIFATAH NEWBY Oct 26, 2016 09:32
[2016-10-26 12:00] VITALS: BP 155/74
[2016-10-26 12:07] LABS: OTHERS PATHOLOGIST COMMENT
--- NOTE | 2016-10-26 13:56 | Physician Query ---
PLEASE COMPLETE FORM BEFORE SIGNING Dear Dr. Axel Bundy Date: October [employer] [facility] Name: Griceldaasha PAUL [facility] [employer] [facility] Phone No: [phone] Exercise your independent professional judgment when responding to query. Questions asked do not imply particular answer is desired or expected. We greatly appreciate your clarification on this issue. Clinical Documentation States: Anemia documented in the Post-Operative (ORIF left intertrochanteric subtrochanteric fracture with intramedullary device) progress notes of Dr. Axel Bundy dated 10-25-2016. Clinical Findings Show: (10/23) (10/24) (10/25) (10/26) Hb 10.7 7.2 6.2 9.1 (2 Units of blood transfused) Hct _32.2 21.6 18.4 27.0 Please clarify the specific type of anemia below: Acuity [x]Acute []Acute on Chronic []Chronic Etiology [x] Blood loss [] ESRD [] Neoplastic disease [] Iron deficiency [] GI Bleed from [] Anemia of chronic disease, [] Unable to determine [] Other: Condition Present on Admission: [] Yes [] No [ ] Clinically Undeterminable Please also document in your Progress Notes and/or Discharge Summary and indicate if the condition was present on admission. Axel Bundy MD Date/Time [facility]
[2016-10-26] MEDS ORDERED: ACETAMINOPHEN325 M1 ORAL (14:26)
[2016-10-26] MEDS ORDERED: BISACODYL5 MG ORAL (14:27)
[2016-10-26] MEDS ORDERED: COLACE100 MG ORAL (14:29)
[2016-10-26] MEDS ORDERED: DULCOLAX10 MG RC (14:29)
[2016-10-26] MEDS ORDERED: HYDROCHLOROTH12.5 MG ORAL (14:31)
[2016-10-26] MEDS ORDERED: HYDROCODON-ACE1 EA15 ORAL (14:32)
[2016-10-26] MEDS ORDERED: HYDROCODON-ACE1 EA16 ORAL (14:33)
[2016-10-26] MEDS ORDERED: COZAAR50 MG ORAL (14:34)
[2016-10-26] MEDS ORDERED: LACTULOSE20 GM/301 ORAL (14:34)
[2016-10-26] MEDS ORDERED: MILK OF MA400 MG/51 ORAL (14:35)
[2016-10-26] MEDS ORDERED: ZOFRAN4 M3 ORAL (14:36)
[2016-10-26] MEDS ORDERED: RESTORIL7.5 MG ORAL (14:37)
[2016-10-26] MEDS ORDERED: METAMUCIL1 PK1 ORAL (14:37)
[2016-10-26] MEDS ORDERED: XARELTO10 MG ORAL (15:05)
[2016-10-26] MEDS ORDERED: NS 275ml ONE (15:59)
[2016-10-26] MEDS ORDERED: Tubing Blood Filter IV ONE (15:59)
[2016-10-27] MEDS ORDERED: Losartan 50mg tab ORAL SCH (09:00)
--- NOTE | 2016-10-27 15:38 | Cardiology Report ---
APPROVED REPORT EKG Measurement Heart [id number] Normal sinus rhythm Normal ECG
--- NOTE | 2016-10-28 09:45 | Discharge Summary ---
Discharge Summary Hospital Course Date of Admission Oct 22, 2016 at 14:42 Date of Discharge Oct 26, 2016 at 16:00 Admitting Diagnosis L. hip fracture ANNE Collazo is a 86 year old female who was admitted on Oct 22, 2016 at 14:42 for Left Hip Fracture Hospital Course [id number] Discharge Discharge Disposition Patient was discharged to SNF/Subacute Facility(03) Discharge Diagnoses: Velia Regalado NP Oct 28, 2016 09:45
--- NOTE | 2016-10-28 15:00 | Discharge Summary 2 SIG ---
DATE OF ADMISSION: 10/22/2016 DATE OF DISCHARGE: 10/26/2016 CONSULTANTS: Ivan Mahmood M.D. BRIEF HOSPITAL COURSE: The patient is an 86-year-old female, who was brought in by EMS. Apparently, the patient had a mechanical fall and tripped and fell over a step and was complaining of left hip pain and unable to move the hip. She denied head injury. On evaluation at emergency room, x-rays showed left hip fracture. Dr. Mahmood, was consulted and the patient underwent ORIF on 10/22/2016. Postoperatively, she was given pain management and was given Lovenox for DVT prophylaxis and was given incentive spirometry. She had a slight postop fever and eventually defervesced. Hemoglobin dropped to 6 on second day postop and was given two units packed RBC transfusion. She was continued on physical therapy and occupational therapy. She had an episode of urinary retention and Terrell catheter was reinserted. She was eventually discharged to SNF with terrell catheter to continue rehabilitation. Lovenox was discontinued and was given Xarelto for DVT prophylaxis. FINAL DIAGNOSES: 1. Left intertrochanteric fracture, status post open reduction and internal fixation. 2. Hypertension. 3. Postoperative pain. 4. Postoperative fever. 5. Postoperative anemia. 6. Urinary retention. Axel Bundy M.D. I have been assigned to dictate discharge summary on this account and I was not involved in the patient's management. Velia Regalado N.P. DR: DEENA JOB#: [id number] CC: RANGEL
== END 2016-10-26 16:00 | DRG 481 ==
LOC: EDBD 11:48 → EMR 12:18 → 3E 14:42 → EDBEDREQ 14:55
PROC: 0QS706Z Reposition Left Upper Femur with Intramedullary Internal Fixation Device, Open Approach (ICD-10-PCS; principal; 2016-10-22 16:45)
PROC: 30233N1 Transfusion of Nonautologous Red Blood Cells into Peripheral Vein, Percutaneous Approach (ICD-10-PCS; 2016-10-25)
DX: S72.142A Displaced intertrochanteric fracture of left femur, initial encounter for closed fracture (principal); D62 Acute posthemorrhagic anemia; R50.9 Fever, unspecified; I10 Essential (primary) hypertension; S72.042A Displaced fracture of base of neck of left femur, initial encounter for closed fracture; R33.9 Retention of urine, unspecified; W01.0XXA Fall on same level from slipping, tripping and stumbling without subsequent striking against object, initial encounter; G89.18 Other acute postprocedural pain
CPT/HCPCS: 36415; 72170; 73502; 74000; 76001; 80053; 85007; 85025; 85610; 85730; 86850; 86900; 86901; 86920; 93005; 93306; 94003; 94150; J2405